=== PATIENT | female | born 1940 | race African-American/Black ===

== ENCOUNTER 2019-11-04 22:10 | Inpatient (IN) | payer MEDICARE, OTHER ==
[2019-11-05 08:28] VITALS: BP 155/79
--- NOTE | 2019-11-05 11:04 | Psychiatric Evaluation ---
DATE OF SERVICE: 11/05/2019 PSYCHIATRIC EVALUATION AND MENTAL STATUS EXAM Chart was reviewed and the patient interviewed. CHIEF COMPLAINT: "Did you tell my son." HISTORY OF PRESENT ILLNESS: The patient is a 79-year-old female who was placed on a [address] Benoit in [facility]. The patient apparently has been aggressive and has been agitated and also confused. She also has been easily agitated and angry. The patient also has been scratching staff and has been aggressive physically with staff and other patients. The patient also has been uncooperative with poor self-care and not able to follow any of staff directions. PAST PSYCHIATRIC HISTORY: The patient has history of dementia and also what seems to be depression. PAST MEDICAL HISTORY: The patient has diabetes mellitus as well as urinary tract infection. Also, has COPD and chronic kidney disease. SOCIAL HISTORY: The patient lives in a skilled nursing in [place]. The patient has 1 son. The patient denies smoking cigarettes or drinking alcohol or any street drugs. ALLERGIES: SULFA AND PENICILLIN. MENTAL STATUS EXAMINATION: Anxious. Sad affect. Irritable mood. Thought processes are with poverty of speech. The patient denies auditory or visual hallucinations, but is actively responding and at times talking to herself. The patient also has difficulty hearing at times. The patient denies suicide or homicide. The patient is alert, but disoriented to time, place, person and situation. Impaired immediate and recent memory, but intact remote memory and she remembered her date and she remembered her son's name. Poor insight and poor judgment. ASSESSMENT: PRIMARY DIAGNOSIS: Dementia, moderate to severe, with psychotic features and behavioral disturbances. Rule out depressive mood disorder with psychosis. TREATMENT PLAN: We will monitor the patient's behavior and her condition closely. We will start individual as well as milieu psychotherapy. We will monitor psychotropic medications. ESTIMATED LENGTH OF STAY: 5-7 days. PATIENT'S STRENGTHS AND WEAKNESSES: The patient at this time cooperative with her treatment. Weakness, she had poor impulse control and ineffective coping. AFTER DISCHARGE PLAN: Outpatient treatment and followup will continue as an outpatient. CRITERIA FOR DISCHARGE: The patient will not be psychotic and will stabilize psychotropic medications and will establish outpatient treatment plans. JOB# [id number]
[2019-11-05] MEDS ORDERED: Magnesium Hydroxide (MOM) 30 mL UDC PO PRN (12:35)
[2019-11-05] MEDS ORDERED: Polyvinyl Alcohol Ophth Soln 15 mL Bottle EACH EYE PRN ×2 (12:35→13:52)
--- NOTE | 2019-11-05 15:57 | History & Physical ---
ADMIT DATE: 11/05/2019 CHIEF COMPLAINT: Agitation. HISTORY OF PRESENT ILLNESS: We have a 79-year-old female who is transferred for treatment of agitation and aggressive behavior. The patient has dementia with agitation. The patient cannot give any meaningful history. No nausea, vomiting, abdominal pain, or diarrhea. PAST MEDICAL HISTORY: 1. Dementia. 2. Diabetes. 3. Hypertension. 4. COPD. PAST SURGICAL HISTORY: None. MEDICATIONS: List reviewed. ALLERGIES: None. SOCIAL HISTORY: Unobtainable. PHYSICAL EXAMINATION: VITAL SIGNS: Temperature is 97.1, pulse 71, respirations 165/73, satting 97% on room air. HEENT: Normocephalic, atraumatic head exam. NECK: Supple. CARDIOVASCULAR: Regular rate and rhythm. LUNGS: Decreased breath sounds. ABDOMEN: Soft, nontender. EXTREMITIES: No edema, cyanosis or clubbing. ASSESSMENT AND PLAN: 1. Agitation. 2. Aggressive behavior. 3. Dementia. 4. Hypertension. The patient will continue with supportive care. I reviewed the records transferred here along with the Director of GeropsychiatricAnika. There are no progress notes from any psychiatrist or PCP noted. Therefore, the patient will be assigned to the unassigned call panel. JOB# [id number]
[2019-11-05] MEDS ORDERED: GLUCAGON HCl 1 MG KIT IM PRN (21:51)
[2019-11-05] MEDS ORDERED: Maalox 30 mL Cup PO PRN (21:57)
[2019-11-06] MEDS: INSULIN LISPRO SLIDING SCALE 100 UNITS/ML UNIT SUBQ SCH ×4 (06:35→20:30)
[2019-11-06] MEDS: Multivitamin Tab PO SCH (08:30)
[2019-11-06] MEDS: Ferrous Sulfate 325 MG TAB PO SCH (08:30)
[2019-11-06] MEDS ORDERED: Multivitamin w/ Minerals Tab PO SCH (09:00)
--- NOTE | 2019-11-06 13:13 | Progress Notes ---
DATE: 11/06/2019 SUBJECTIVE: Chart reviewed and the patient interviewed. Also discussed the patient's condition with the staff and reviewed the records and labs. The patient is still severely irritable and still is easily agitated. The patient also is yelling and screaming for no reason. The patient also is still in angry mood. Otherwise, the patient is compliant with taking her medications with no side effects of medications. The patient is in the gurcolona chair. Agitated. Restless. Irritable mood. Easily agitated and easily irritable. ASSESSMENT: The patient is still agitated and is still psychotic. TREATMENT PLAN: We will start the patient on Seroquel 12.5 mg twice a day. Also, we will work on her irritability and agitation. Also, we will give Ativan on a p.r.n. basis. ESTIMATED LENGTH OF STAY: 4-6 days. REASON TO CONTINUE HOSPITAL STAY: The patient is still aggressive and agitated and needs close monitoring. [facility]# [id number]
--- NOTE | 2019-11-06 15:39 | Internal Medicine Prog Note ---
Internal Medicine Subjective - Subjective Service Date: 11/06/19 Patient seen and examined:: without staff Patient is:: awake Per staff patient has:: no adverse event, no episodes of fall Internal Medicine Objective - Results Recent Labs: Laboratory Last Values POC Glucose 269 MG/DL (70 - 105) H 11/06/19 06:12 - Physical Exam Vitals and I&O: Vital Signs Temp 96.8 F 11/06/19 14:00 Pulse 74 11/06/19 14:00 Resp 20 11/06/19 14:00 BP 137/84 11/06/19 14:00 Pulse Ox 90 11/06/19 14:00 Intake & Output 11/05/19 11/06/19 11/06/19 18:59 06:59 18:59 Intake Total 700 Balance 700 Weight (lbs) 52.617 kg Intake: Oral 700 Other: # Voids 3 # Bowel Movements 0 Stool Characteristics Soft Soft Soft Weight Source Estimated Active Medications: Current Medications Acetaminophen (Tylenol) 650 mg PO Q4H PRN PRN Reason: Pain (Mild 1-3) Stop: 01/04/20 21:56 Al Hydrox/Mg Hydrox/Simethicone (Maalox) 30 ml PO Q4HR PRN PRN Reason: GI DISTRESS Stop: 01/04/20 21:56 Artificial Tears (Artificial Tears Ophth Soln) 2 drop EACH EYE Q4HR PRN PRN Reason: Dry Eye Stop: 01/04/20 12:34 Bisacodyl (Dulcolax 10 Mg Supp) 10 mg RC DAILY PRN PRN Reason: IF MOM IS INEFFECTIVE Stop: 01/04/20 12:32 Dextrose (Glutose 40%) 18.75 gm PO PRN PRN PRN Reason: BS Below 70 if tolerate po Stop: 01/04/20 21:50 Donepezil HCl (Aricept) 5 mg PO DAILY [facility] Stop: 01/05/20 08:59 Last Admin: 11/06/19 08:31 Dose: 5 mg Ferrous Sulfate (Iron) 325 mg PO DAILY [facility] Stop: 01/05/20 08:59 Last Admin: 11/06/19 08:30 Dose: 325 mg Furosemide (Lasix) 20 mg PO DAILY [facility] Stop: 01/05/20 08:59 Last Admin: 11/06/19 08:31 Dose: 20 mg Glucagon (Glucagen) 1 mg IM PRN PRN PRN Reason: BS Below 70 if not tolerate po Stop: 01/04/20 21:50 Ibuprofen (Motrin) 400 mg PO Q4H PRN PRN Reason: Pain (Severe 7-10) Stop: 01/04/20 21:56 Last Admin: 11/06/19 08:30 Dose: 400 mg Insulin Glargine (Lantus Insulin) 20 units SUBQ HS [facility] Stop: 01/05/20 20:59 Insulin Human Lispro (Humalog Insulin Sliding Scale) 0 units SUBQ ACHS [facility]; Protocol Stop: 01/05/20 07:29 Last Admin: 11/06/19 11:25 Dose: Not Given Lisinopril (Zestril) 5 mg PO DAILY [facility] Stop: 01/05/20 08:59 Last Admin: 11/06/19 08:33 Dose: 5 mg Loratadine (Claritin) 10 mg PO DAILY [facility] Stop: 01/05/20 08:59 Last Admin: 11/06/19 08:31 Dose: 10 mg Lorazepam (Ativan) 0.5 mg PO Q4HR PRN; Protocol PRN Reason: Anxiety Stop: 12/05/19 12:59 Last Admin: 11/06/19 09:41 Dose: 0.5 mg Magnesium Hydroxide (Milk Of Magnesia) 30 ml PO DAILY PRN PRN Reason: Constipation Stop: 01/04/20 12:34 Multivitamins/Vitamin C (Theragran) 1 tab PO DAILY [facility] Stop: 01/05/20 08:59 Last Admin: 11/06/19 08:30 Dose: 1 tab Mupirocin (Bactroban Oint) 1 appl NS BID [facility] Stop: 11/11/19 09:01 Nitrofurantoin Macrocrystals (Macrobid) 100 mg PO BID [facility]; Protocol Stop: 11/06/19 16:59 Last Admin: 11/06/19 08:30 Dose: 100 mg Quetiapine Fumarate (Seroquel) 25 mg PO QPM [facility]; Protocol Stop: 01/05/20 16:59 Quetiapine Fumarate (Seroquel) 12.5 mg PO BID [facility]; Protocol Stop: 01/05/20 08:59 Last Admin: 11/06/19 09:41 Dose: 12.5 mg Zolpidem Tartrate (Ambien) 5 mg PO HS PRN PRN Reason: Insomnia Stop: 01/04/20 21:56 General: weak HEENT: NC/AT, PERRLA Neck: Supple Lungs: CTAB Cardiovascular: RRR, Normal S1, Normal S2 Abdomen: soft Extremities: clear Internal Medicine Assmt/Plan - Assessment Assessment: 1. DM 2. HTN 3. HLD 4. Dementia - Plan Plan: continue lantus 20 units sq daily continue sliding scale insulin d/w r.n.
[2019-11-06] MEDS ORDERED: Insulin Glargine 100 units/ml 10ml Vial SUBQ SCH (21:00)
[2019-11-07] MEDS: INSULIN LISPRO SLIDING SCALE 100 UNITS/ML UNIT SUBQ SCH ×4 (06:35→20:20)
[2019-11-07] MEDS: Ferrous Sulfate 325 MG TAB PO SCH (09:11)
[2019-11-07] MEDS: Multivitamin Tab PO SCH (09:43)
--- NOTE | 2019-11-07 13:28 | Progress Notes ---
DATE: 11/07/2019 SUBJECTIVE: Chart reviewed and the patient interviewed. Also discussed the patient's condition with the staff and reviewed records and labs. The patient still gets irritable and agitated, especially when the staff trying to help her with her ADLs. She is still trying to scratch nurses and staff. The patient also is still confused and she has disorganized thoughts. She seems to be slightly calmer since I started her on Seroquel, but she is still agitated and confused and actively responding. The patient denies any intention to harm herself. She is compliant with taking Seroquel with no side effects. MENTAL STATUS EXAMINATION: Anxious. Depressed and angry and irritable mood. The patient also is confused. No new labs available for review and the vital signs are stable. ASSESSMENT: The patient is still confused and can be dangerous to others. TREATMENT PLAN: Continue Seroquel 12.5 mg twice a day and Aricept 5 mg at bedtime and continue to follow up. ESTIMATED LENGTH OF STAY: 3-5 days. REASON FOR CONTINUED HOSPITAL STAY: The patient is still depressed and still can be dangerous to others. JOB# [id number]
--- NOTE | 2019-11-07 16:04 | Internal Medicine Prog Note ---
Internal Medicine Subjective - Subjective Service Date: 11/07/19 Patient seen and examined:: without staff Patient is:: awake Per staff patient has:: no adverse event, no episodes of fall Internal Medicine Objective - Results Recent Labs: Laboratory Last Values POC Glucose 75 MG/DL (70 - 105) 11/07/19 12:03 - Physical Exam Vitals and I&O: Vital Signs Temp 97.3 F 11/07/19 14:00 Pulse 90 11/07/19 14:00 Resp 18 11/07/19 14:00 BP 112/70 11/07/19 14:00 Pulse Ox 94 11/07/19 14:00 Intake & Output 11/06/19 11/07/19 11/07/19 18:59 06:59 18:59 Intake Total 1200 120 Balance 1200 120 Intake: Oral 1200 120 Other: # Voids 3 # Bowel Movements 1 Stool Characteristics Soft Soft Soft Active Medications: Current Medications Acetaminophen (Tylenol) 650 mg PO Q4H PRN PRN Reason: Pain (Mild 1-3) Stop: 01/04/20 21:56 Al Hydrox/Mg Hydrox/Simethicone (Maalox) 30 ml PO Q4HR PRN PRN Reason: GI DISTRESS Stop: 01/04/20 21:56 Artificial Tears (Artificial Tears Ophth Soln) 2 drop EACH EYE Q4HR PRN PRN Reason: Dry Eye Stop: 01/04/20 12:34 Bisacodyl (Dulcolax 10 Mg Supp) 10 mg RC DAILY PRN PRN Reason: IF MOM IS INEFFECTIVE Stop: 01/04/20 12:32 Dextrose (Glutose 40%) 18.75 gm PO PRN PRN PRN Reason: BS Below 70 if tolerate po Stop: 01/04/20 21:50 Donepezil HCl (Aricept) 5 mg PO DAILY [facility] Stop: 01/05/20 08:59 Last Admin: 11/07/19 09:11 Dose: 5 mg Ferrous Sulfate (Iron) 325 mg PO DAILY [facility] Stop: 01/05/20 08:59 Last Admin: 11/07/19 09:11 Dose: 325 mg Furosemide (Lasix) 20 mg PO DAILY [facility] Stop: 01/05/20 08:59 Last Admin: 11/06/19 08:31 Dose: 20 mg Glucagon (Glucagen) 1 mg IM PRN PRN PRN Reason: BS Below 70 if not tolerate po Stop: 01/04/20 21:50 Ibuprofen (Motrin) 400 mg PO Q4H PRN PRN Reason: Pain (Severe 7-10) Stop: 01/04/20 21:56 Last Admin: 11/06/19 08:30 Dose: 400 mg Insulin Glargine (Lantus Insulin) 20 units SUBQ HS [facility] Stop: 01/05/20 20:59 Last Admin: 11/06/19 20:29 Dose: 20 units Insulin Human Lispro (Humalog Insulin Sliding Scale) 0 units SUBQ ACHS [facility]; Protocol Stop: 01/05/20 07:29 Last Admin: 11/07/19 12:18 Dose: Not Given Lisinopril (Zestril) 5 mg PO DAILY [facility] Stop: 01/05/20 08:59 Last Admin: 11/07/19 09:10 Dose: 5 mg Loratadine (Claritin) 10 mg PO DAILY [facility] Stop: 01/05/20 08:59 Last Admin: 11/07/19 09:12 Dose: 10 mg Lorazepam (Ativan) 0.5 mg PO Q4HR PRN; Protocol PRN Reason: Anxiety Stop: 12/05/19 12:59 Last Admin: 11/06/19 09:41 Dose: 0.5 mg Magnesium Hydroxide (Milk Of Magnesia) 30 ml PO DAILY PRN PRN Reason: Constipation Stop: 01/04/20 12:34 Multivitamins/Vitamin C (Theragran) 1 tab PO DAILY [facility] Stop: 01/05/20 08:59 Last Admin: 11/07/19 09:43 Dose: Not Given Mupirocin (Bactroban Oint) 1 appl NS BID [facility] Stop: 11/11/19 09:01 Last Admin: 11/06/19 16:16 Dose: 1 appl Quetiapine Fumarate (Seroquel) 12.5 mg PO BID [facility]; Protocol Stop: 01/05/20 08:59 Last Admin: 11/07/19 09:13 Dose: 12.5 mg Quetiapine Fumarate (Seroquel) 25 mg PO HS [facility]; Protocol Stop: 01/06/20 20:59 Zolpidem Tartrate (Ambien) 5 mg PO HS PRN PRN Reason: Insomnia Stop: 01/04/20 21:56 Last Admin: 11/06/19 20:29 Dose: 5 mg General: weak HEENT: NC/AT, PERRLA Neck: Supple Lungs: CTAB Cardiovascular: RRR, Normal S1, Normal S2 Abdomen: soft Extremities: clear Neurological: no change Internal Medicine Assmt/Plan - Assessment Assessment: 1. DM, poorly controlled 2. HTN 3. HLD 4. Dementia - Plan Plan: increase lantus to 25 units sq daily continue sliding scale insulin d/w r.n. Nutritional Asmnt/Malnutr-PDOC - Dietary Evaluation Malnutrition Findings (Please click <Entered> for more info): Nutritional Asmnt/Malnutrition Start: 11/07/19 14: 05 Text: Status: Complete Freq: Protocol: Document 11/07/19 14:05 EVELYNE (Rec: 11/07/19 14:16 EVELYNE [email or web address] [id number]) Nutritional Asmnt/Malnutrition Patient General Information Nutritional Screening Moderate Risk Diagnosis Psychosis Pertinent Medical Hx/Surgical Hx HTN, DM, COPD, Dementia Subjective Information Pt is a 79-year-old female admitted on 11/04 d/t a 5150 hold, agitation and aggression . Pt is eating an estimated 54 % x2 days of meals Per Meal/ Nutrition Activity Record. Dietary is currently providing an estimated 2600 kcals and 150 gm Pro, per Pt PO intake this is providing an estimated 1400 kcals and 80gm Pro to meet 100+% kcal and 100+% Pro needs. Although pt POP intake is fair, dietary is providing enough kcals and pro to meet estimated energy needs. Visited pt in room, pt was lying down and unresponsive to conversation. Anthropometrics HT: 50 WT: 116 LB (52.72 kg) BMI: 22.65 (Normal) GI/ Skin Integrity GI: WNL, Soft BM: 11/05 x1 I/O: 1320/Not Noted Skin: WNL, Intact Jose Alfredo: 14 Diet Order: CCHO, Pureed Estimated Energy Needs: ( Geriatric, CBW) 4722-4263 kcals (25-30 kcals/ kg) 55-65 g Pro (1.0-1.2 g/kg) 3804-0577 ml (25-30 ml/kg) Current Diet Order/ Nutrition Support CCHO, Pureed Patient / S.O Can't verbalize diet edu Pertinent Medications Maalox (PRN), Dulcolax (PRN), Glutose 40% (PRN), Iron, Lasix , Glucagen, Lantus Insulin, INS-SS, MOM (PRN), Theragran Pertinent Labs POC Glucose (last 24 hours): 269, 240, 106, 106 11/04: Glucose 217, Urine Glucose 2+, Alb 2.8, A1C 10.1% Nutritional Hx/Data Height 1.52 m Height (Calculated Centimeters) 152.4 Current Weight (lbs) 52.617 kg Weight (Calculated Kilograms) 52.6 Weight (Calculated Grams) 74438.7 [place] Body Weight 100 % [place] Body Weight 116 Body Mass Index (BMI) 22.6 Recent Weight Change No Weight Status Approriate GI Symptoms GI Symptoms None Last BM BM: 11/05 x1 Skin Integrity/Comment: Skin: WNL, Intact Current %PO Fair (50-74%) Estimated Nutritional Goals BEE in Kcals: Using Current wt Calories/Kcals/Kg 25-30 Kcals Calculated 5863-4343 Protein: Using Current wt Protein g/k.0-1.2 Protein Calculated 55-65 Fluid: ml 5588-2800 ml (25-30 ml/kg) Nutritional Problem 1. Problem Problem Altered nutrition-related lab values Etiology related to endocrine dysfunction Signs/Symptoms: as evidenced by labs (A1C 10.1 % and POC Glucose (last 24 hours): 269, 240, 106, 106). Malnutrition Related to Morbid Obesity Malnutrition related to morbid obesity No Intervention/Recommendation Comments Continue CCHO, Pureed diet as tolerated. Expected Outcomes/Goals Expected Outcomes/Goals 1. PO intake to meet 75% of estimated nutritional needs. 2. Monitor PO intake, wt, nutrition related labs, and skin integrity. 3. F/U as moderate risk in 3-5 days, 11/09-11/11.
[2019-11-07] MEDS: Insulin Glargine 100 units/ml 10ml Vial SUBQ SCH (20:20)
[2019-11-08] MEDS: INSULIN LISPRO SLIDING SCALE 100 UNITS/ML UNIT SUBQ SCH ×3 (06:52→21:12)
[2019-11-08] MEDS: Multivitamin Tab PO SCH (08:46)
[2019-11-08] MEDS: Ferrous Sulfate 325 MG TAB PO SCH (08:46)
--- NOTE | 2019-11-08 13:41 | Internal Medicine Prog Note ---
Internal Medicine Subjective - Subjective Service Date: 11/08/19 Patient seen and examined:: without staff Patient is:: awake Per staff patient has:: no adverse event, no episodes of fall Internal Medicine Objective - Results Recent Labs: Laboratory Last Values POC Glucose 94 MG/DL (70 - 105) 11/08/19 11:04 - Physical Exam Vitals and I&O: Vital Signs Temp 97.6 F 11/07/19 19:52 Pulse 84 11/08/19 08:52 Resp 19 11/08/19 08:00 BP 134/79 11/08/19 08:53 Pulse Ox 90 11/07/19 19:52 Intake & Output 11/07/19 11/08/19 11/08/19 18:59 06:59 18:59 Intake Total 700 240 Balance 700 240 Intake: Oral 460 240 Other 240 Other: # Voids 3 2 # Bowel Movements 0 Stool Characteristics Soft Active Medications: Current Medications Acetaminophen (Tylenol) 650 mg PO Q4H PRN PRN Reason: Pain (Mild 1-3) Stop: 01/04/20 21:56 Al Hydrox/Mg Hydrox/Simethicone (Maalox) 30 ml PO Q4HR PRN PRN Reason: GI DISTRESS Stop: 01/04/20 21:56 Artificial Tears (Artificial Tears Ophth Soln) 2 drop EACH EYE Q4HR PRN PRN Reason: Dry Eye Stop: 01/04/20 12:34 Bisacodyl (Dulcolax 10 Mg Supp) 10 mg RC DAILY PRN PRN Reason: IF MOM IS INEFFECTIVE Stop: 01/04/20 12:32 Dextrose (Glutose 40%) 18.75 gm PO PRN PRN PRN Reason: BS Below 70 if tolerate po Stop: 01/04/20 21:50 Donepezil HCl (Aricept) 5 mg PO DAILY [facility] Stop: 01/05/20 08:59 Last Admin: 11/08/19 08:47 Dose: Not Given Ferrous Sulfate (Iron) 325 mg PO DAILY [facility] Stop: 01/05/20 08:59 Last Admin: 11/08/19 08:46 Dose: Not Given Furosemide (Lasix) 20 mg PO DAILY [facility] Stop: 01/05/20 08:59 Last Admin: 11/08/19 08:53 Dose: Not Given Glucagon (Glucagen) 1 mg IM PRN PRN PRN Reason: BS Below 70 if not tolerate po Stop: 01/04/20 21:50 Ibuprofen (Motrin) 400 mg PO Q4H PRN PRN Reason: Pain (Severe 7-10) Stop: 01/04/20 21:56 Last Admin: 11/06/19 08:30 Dose: 400 mg Insulin Glargine (Lantus Insulin) 25 units SUBQ HS [facility] Stop: 01/06/20 20:59 Last Admin: 11/07/19 20:20 Dose: Not Given Insulin Human Lispro (Humalog Insulin Sliding Scale) [address] [facility]; Protocol Stop: 01/05/20 07:29 Last Admin: 11/08/19 11:08 Dose: Not Given Lisinopril (Zestril) 5 mg PO DAILY [facility] Stop: 01/05/20 08:59 Last Admin: 11/08/19 08:52 Dose: Not Given Loratadine (Claritin) 10 mg PO DAILY [facility] Stop: 01/05/20 08:59 Last Admin: 11/08/19 08:45 Dose: Not Given Lorazepam (Ativan) 0.5 mg PO Q4HR PRN; Protocol PRN Reason: Anxiety Stop: 12/05/19 12:59 Last Admin: 11/06/19 09:41 Dose: 0.5 mg Magnesium Hydroxide (Milk Of Magnesia) 30 ml PO DAILY PRN PRN Reason: Constipation Stop: 01/04/20 12:34 Multivitamins/Vitamin C (Theragran) 1 tab PO DAILY [facility] Stop: 01/05/20 08:59 Last Admin: 11/08/19 08:46 Dose: Not Given Mupirocin (Bactroban Oint) 1 appl NS BID [facility] Stop: 11/11/19 09:01 Last Admin: 11/08/19 08:44 Dose: Not Given Quetiapine Fumarate (Seroquel) 12.5 mg PO BID [facility]; Protocol Stop: 01/05/20 08:59 Last Admin: 11/08/19 08:46 Dose: Not Given Quetiapine Fumarate (Seroquel) 25 mg PO HS [facility]; Protocol Stop: 01/06/20 20:59 Last Admin: 11/07/19 20:27 Dose: Not Given Zolpidem Tartrate (Ambien) 5 mg PO HS PRN PRN Reason: Insomnia Stop: 01/04/20 21:56 Last Admin: 11/06/19 20:29 Dose: 5 mg General: weak HEENT: NC/AT, PERRLA Neck: Supple Lungs: CTAB Cardiovascular: RRR, Normal S1, Normal S2 Abdomen: soft Extremities: clear Neurological: no change Internal Medicine Assmt/Plan - Assessment Assessment: 1. DM, poorly controlled 2. HTN 3. HLD 4. Dementia - Plan Plan: hold lantus start levaquin for uti continue sliding scale insulin d/w r.n. Nutritional Asmnt/Malnutr-PDOC - Dietary Evaluation Malnutrition Findings (Please click <Entered> for more info): Nutritional Asmnt/Malnutrition Start: 11/07/19 14: 05 Text: Status: Complete Freq: Protocol: Document 11/07/19 14:05 EVELYNE (Rec: 11/07/19 14:16 EVELYNE [email or web address] [id number]) Nutritional Asmnt/Malnutrition Patient General Information Nutritional Screening Moderate Risk Diagnosis Psychosis Pertinent Medical Hx/Surgical Hx HTN, DM, COPD, Dementia Subjective Information Pt is a 79-year-old female admitted on 11/04 d/t a 5150 hold, agitation and aggression . Pt is eating an estimated 54 % x2 days of meals Per Meal/ Nutrition Activity Record. Dietary is currently providing an estimated 2600 kcals and 150 gm Pro, per Pt PO intake this is providing an estimated 1400 kcals and 80gm Pro to meet 100+% kcal and 100+% Pro needs. Although pt POP intake is fair, dietary is providing enough kcals and pro to meet estimated energy needs. Visited pt in room, pt was lying down and unresponsive to conversation. Anthropometrics HT: 50 WT: 116 LB (52.72 kg) BMI: 22.65 (Normal) GI/ Skin Integrity GI: WNL, Soft BM: 11/05 x1 I/O: 1320/Not Noted Skin: WNL, Intact Jose Alfredo: 14 Diet Order: CCHO, Pureed Estimated Energy Needs: ( Geriatric, CBW) 4347-6733 kcals (25-30 kcals/ kg) 55-65 g Pro (1.0-1.2 g/kg) 5850-0800 ml (25-30 ml/kg) Current Diet Order/ Nutrition Support CCHO, Pureed Patient / S.O Can't verbalize diet edu Pertinent Medications Maalox (PRN), Dulcolax (PRN), Glutose 40% (PRN), Iron, Lasix , Glucagen, Lantus Insulin, INS-SS, MOM (PRN), Theragran Pertinent Labs POC Glucose (last 24 hours): 269, 240, 106, 106 11/04: Glucose 217, Urine Glucose 2+, Alb 2.8, A1C 10.1% Nutritional Hx/Data Height 1.52 m Height (Calculated Centimeters) 152.4 Current Weight (lbs) 52.617 kg Weight (Calculated Kilograms) 52.6 Weight (Calculated Grams) 04714.7 [place] Body Weight 100 % [place] Body Weight 116 Body Mass Index (BMI) 22.6 Recent Weight Change No Weight Status Approriate GI Symptoms GI Symptoms None Last BM BM: 11/05 x1 Skin Integrity/Comment: Skin: WNL, Intact Current %PO Fair (50-74%) Estimated Nutritional Goals BEE in Kcals: Using Current wt Calories/Kcals/Kg 25-30 Kcals Calculated 7052-6988 Protein: Using Current wt Protein g/k.0-1.2 Protein Calculated 55-65 Fluid: ml 2630-5881 ml (25-30 ml/kg) Nutritional Problem 1. Problem Problem Altered nutrition-related lab values Etiology related to endocrine dysfunction Signs/Symptoms: as evidenced by labs (A1C 10.1 % and POC Glucose (last 24 hours): 269, 240, 106, 106). Malnutrition Related to Morbid Obesity Malnutrition related to morbid obesity No Intervention/Recommendation Comments Continue CCHO, Pureed diet as tolerated. Expected Outcomes/Goals Expected Outcomes/Goals 1. PO intake to meet 75% of estimated nutritional needs. 2. Monitor PO intake, wt, nutrition related labs, and skin integrity. 3. F/U as moderate risk in 3-5 days, 11/09-11/11.
[2019-11-08] MEDS: Insulin Glargine 100 units/ml 10ml Vial SUBQ SCH (21:13)
--- NOTE | 2019-11-08 22:55 | Psych Progress Note ---
Psych Progress Note - Intro Date of Progress Note: 11/08/19 - Assessment Assessment: patient interviewed, case discussed with staff, chart and records were reviewed. patient remains confused. "Let me go home" but not able to recall where home is." She is easily angered, restless, paranoid of others. not cooperative with interview. - Vitals, I&O Vitals: Vital Signs - 24 hr 11/08/19 11/08/19 11/08/19 08:00 08:52 08:53 Temp HR 84 RR 19 BP 134/79 134/79 O2 Sat % 11/08/19 11/08/19 15:45 20:09 Temp 98.1 F 97.1 F HR 84 87 RR 20 20 BP 146/92 153/97 O2 Sat % 95 94 - Objective Psych General Appearance: Report: No acute distress Psych Behavior: Report: Uncooperative, Restless Psych Speech: Report: Mumbled, Soft Psych Mood: Report: Angry Psych Affect: Report: Labile Psych Cognition: Report: Confused Psych Insight: Report: Impaired Psych Judgement: Report: Impaired - Plan Plan: cont meds, encouraged groups - Review of Relevant Data Review of Relevant Data: I have reviewed the following items and time florina (where applicable) has been applied. - Medications Current Medications: Current Medications Acetaminophen (Tylenol) 650 mg PO Q4H PRN PRN Reason: Pain (Mild 1-3) Stop: 01/04/20 21:56 Al Hydrox/Mg Hydrox/Simethicone (Maalox) 30 ml PO Q4HR PRN PRN Reason: GI DISTRESS Stop: 01/04/20 21:56 Artificial Tears (Artificial Tears Ophth Soln) 2 drop EACH EYE Q4HR PRN PRN Reason: Dry Eye Stop: 01/04/20 12:34 Bisacodyl (Dulcolax 10 Mg Supp) 10 mg RC DAILY PRN PRN Reason: IF MOM IS INEFFECTIVE Stop: 01/04/20 12:32 Dextrose (Glutose 40%) 18.75 gm PO PRN PRN PRN Reason: BS Below 70 if tolerate po Stop: 01/04/20 21:50 Donepezil HCl (Aricept) 5 mg PO DAILY [facility] Stop: 01/05/20 08:59 Last Admin: 11/08/19 08:47 Dose: Not Given Ferrous Sulfate (Iron) 325 mg PO DAILY [facility] Stop: 01/05/20 08:59 Last Admin: 11/08/19 08:46 Dose: Not Given Furosemide (Lasix) 20 mg PO DAILY [facility] Stop: 01/05/20 08:59 Last Admin: 11/08/19 08:53 Dose: Not Given Glucagon (Glucagen) 1 mg IM PRN PRN PRN Reason: BS Below 70 if not tolerate po Stop: 01/04/20 21:50 Ibuprofen (Motrin) 400 mg PO Q4H PRN PRN Reason: Pain (Severe 7-10) Stop: 01/04/20 21:56 Last Admin: 11/06/19 08:30 Dose: 400 mg Insulin Glargine (Lantus Insulin) 25 units SUBQ HS [facility] Stop: 01/06/20 20:59 Last Admin: 11/08/19 21:13 Dose: 25 units Insulin Human Lispro (Humalog Insulin Sliding Scale) 0 units SUBQ ACHS [facility]; Protocol Stop: 01/05/20 07:29 Last Admin: 11/08/19 21:12 Dose: 2 units Levofloxacin (Levaquin) 500 mg PO DAILY [facility] Stop: 01/07/20 13:44 Last Admin: 11/08/19 14:26 Dose: 500 mg Lisinopril (Zestril) 5 mg PO DAILY [facility] Stop: 01/05/20 08:59 Last Admin: 11/08/19 08:52 Dose: Not Given Loratadine (Claritin) 10 mg PO DAILY [facility] Stop: 01/05/20 08:59 Last Admin: 11/08/19 08:45 Dose: Not Given Lorazepam (Ativan) 0.5 mg PO Q4HR PRN; Protocol PRN Reason: Anxiety Stop: 12/05/19 12:59 Last Admin: 11/08/19 22:26 Dose: 0.5 mg Magnesium Hydroxide (Milk Of Magnesia) 30 ml PO DAILY PRN PRN Reason: Constipation Stop: 01/04/20 12:34 Multivitamins/Vitamin C (Theragran) 1 tab PO DAILY [facility] Stop: 01/05/20 08:59 Last Admin: 11/08/19 08:46 Dose: Not Given Mupirocin (Bactroban Oint) 1 appl NS BID [facility] Stop: 11/11/19 09:01 Last Admin: 11/08/19 16:32 Dose: 1 appl Quetiapine Fumarate (Seroquel) 12.5 mg PO BID [facility]; Protocol Stop: 01/05/20 08:59 Last Admin: 11/08/19 16:32 Dose: 12.5 mg Quetiapine Fumarate (Seroquel) 25 mg PO HS [facility]; Protocol Stop: 01/06/20 20:59 Last Admin: 11/08/19 21:14 Dose: 25 mg Zolpidem Tartrate (Ambien) 5 mg PO HS PRN PRN Reason: Insomnia Stop: 01/04/20 21:56 Last Admin: 11/08/19 21:15 Dose: 5 mg
[2019-11-09] MEDS: INSULIN LISPRO SLIDING SCALE 100 UNITS/ML UNIT SUBQ SCH ×4 (07:26→20:51)
[2019-11-09] MEDS: Ferrous Sulfate 325 MG TAB PO SCH (09:09)
[2019-11-09] MEDS: Multivitamin Tab PO SCH (09:11)
--- NOTE | 2019-11-09 13:35 | Internal Medicine Prog Note ---
Internal Medicine Subjective - Subjective Service Date: 11/09/19 Patient seen and examined:: without staff Patient is:: awake Per staff patient has:: no adverse event, no episodes of fall Internal Medicine Objective - Results Recent Labs: Laboratory Last Values POC Glucose 141 MG/DL (70 - 105) H 11/09/19 11:56 - Physical Exam Vitals and I&O: Vital Signs Temp 97 F 11/09/19 06:06 Pulse 83 11/09/19 09:10 Resp 19 11/09/19 08:00 BP 179/90 11/09/19 09:10 Pulse Ox 93 11/09/19 06:06 Intake & Output 11/08/19 11/09/19 11/09/19 18:59 06:59 18:59 Intake Total 480 Output Total 1 Balance 479 Intake: Oral 480 Output: Urine/Stool Mix 1 Other: # Voids 1 Active Medications: Current Medications Acetaminophen (Tylenol) 650 mg PO Q4H PRN PRN Reason: Pain (Mild 1-3) Stop: 01/04/20 21:56 Al Hydrox/Mg Hydrox/Simethicone (Maalox) 30 ml PO Q4HR PRN PRN Reason: GI DISTRESS Stop: 01/04/20 21:56 Artificial Tears (Artificial Tears Ophth Soln) 2 drop EACH EYE Q4HR PRN PRN Reason: Dry Eye Stop: 01/04/20 12:34 Bisacodyl (Dulcolax 10 Mg Supp) 10 mg RC DAILY PRN PRN Reason: IF MOM IS INEFFECTIVE Stop: 01/04/20 12:32 Dextrose (Glutose 40%) 18.75 gm PO PRN PRN PRN Reason: BS Below 70 if tolerate po Stop: 01/04/20 21:50 Donepezil HCl (Aricept) 5 mg PO DAILY [facility] Stop: 01/05/20 08:59 Last Admin: 11/09/19 09:08 Dose: 5 mg Ferrous Sulfate (Iron) 325 mg PO DAILY [facility] Stop: 01/05/20 08:59 Last Admin: 11/09/19 09:09 Dose: 325 mg Furosemide (Lasix) 20 mg PO DAILY [facility] Stop: 01/05/20 08:59 Last Admin: 11/09/19 09:09 Dose: 20 mg Glucagon (Glucagen) 1 mg IM PRN PRN PRN Reason: BS Below 70 if not tolerate po Stop: 01/04/20 21:50 Ibuprofen (Motrin) 400 mg PO Q4H PRN PRN Reason: Pain (Severe 7-10) Stop: 01/04/20 21:56 Last Admin: 11/06/19 08:30 Dose: 400 mg Insulin Glargine (Lantus Insulin) 25 units SUBQ HS [facility] Stop: 01/06/20 20:59 Last Admin: 11/08/19 21:13 Dose: 25 units Insulin Human Lispro (Humalog Insulin Sliding Scale) 0 units SUBQ [facility]; Protocol Stop: 01/05/20 07:29 Last Admin: 11/09/19 11:59 Dose: Not Given Levofloxacin (Levaquin) 500 mg PO DAILY [facility] Stop: 01/07/20 13:44 Last Admin: 11/09/19 09:10 Dose: 500 mg Lisinopril (Zestril) 5 mg PO DAILY [facility] Stop: 01/05/20 08:59 Last Admin: 11/09/19 09:10 Dose: 5 mg Loratadine (Claritin) 10 mg PO DAILY [facility] Stop: 01/05/20 08:59 Last Admin: 11/09/19 09:11 Dose: 10 mg Lorazepam (Ativan) 0.5 mg PO Q4HR PRN; Protocol PRN Reason: Anxiety Stop: 12/05/19 12:59 Last Admin: 11/08/19 22:26 Dose: 0.5 mg Magnesium Hydroxide (Milk Of Magnesia) 30 ml PO DAILY PRN PRN Reason: Constipation Stop: 01/04/20 12:34 Multivitamins/Vitamin C (Theragran) 1 tab PO DAILY [facility] Stop: 01/05/20 08:59 Last Admin: 11/09/19 09:11 Dose: 1 tab Mupirocin (Bactroban Oint) 1 appl NS BID [facility] Stop: 11/11/19 09:01 Last Admin: 11/09/19 09:16 Dose: 1 appl Quetiapine Fumarate (Seroquel) 12.5 mg PO BID [facility]; Protocol Stop: 01/05/20 08:59 Last Admin: 11/09/19 09:11 Dose: 12.5 mg Quetiapine Fumarate (Seroquel) 25 mg PO [facility]; Protocol Stop: 01/06/20 20:59 Last Admin: 11/08/19 21:14 Dose: 25 mg Zolpidem Tartrate (Ambien) 5 mg PO HS PRN PRN Reason: Insomnia Stop: 01/04/20 21:56 Last Admin: 11/08/19 21:15 Dose: 5 mg General: weak HEENT: NC/AT, PERRLA Neck: Supple Lungs: CTAB Cardiovascular: RRR, Normal S1, Normal S2 Abdomen: soft Extremities: clear Neurological: no change Internal Medicine Assmt/Plan - Assessment Assessment: 1. DM, poorly controlled 2. HTN 3. HLD 4. Dementia - Plan Plan: hold lantus start levaquin for uti continue sliding scale insulin reviewed blood sugar diary still blood sugars are labile reviewed medical records and d/w r.n. Nutritional Asmnt/Malnutr-PDOC - Dietary Evaluation Malnutrition Findings (Please click <Entered> for more info): Nutritional Asmnt/Malnutrition Start: 11/07/19 14: 05 Text: Status: Complete Freq: Protocol: Document 11/07/19 14:05 EVELYNE (Rec: 11/07/19 14:16 EVELYNE [id number]) Nutritional Asmnt/Malnutrition Patient General Information Nutritional Screening Moderate Risk Diagnosis Psychosis Pertinent Medical Hx/Surgical Hx HTN, DM, COPD, Dementia Subjective Information Pt is a 79-year-old female admitted on 11/04 d/t a 5150 hold, agitation and aggression . Pt is eating an estimated 54 % x2 days of meals Per Meal/ Nutrition Activity Record. Dietary is currently providing an estimated 2600 kcals and 150 gm Pro, per Pt PO intake this is providing an estimated 1400 kcals and 80gm Pro to meet 100+% kcal and 100+% Pro needs. Although pt POP intake is fair, dietary is providing enough kcals and pro to meet estimated energy needs. Visited pt in room, pt was lying down and unresponsive to conversation. Anthropometrics HT: 50 WT: 116 LB (52.72 kg) BMI: 22.65 (Normal) GI/ Skin Integrity GI: WNL, Soft BM: 11/05 x1 I/O: 1320/Not Noted Skin: WNL, Intact Jose Alfredo: 14 Diet Order: CCHO, Pureed Estimated Energy Needs: ( Geriatric, CBW) 7932-5314 kcals (25-30 kcals/ kg) 55-65 g Pro (1.0-1.2 g/kg) 9153-2272 ml (25-30 ml/kg) Current Diet Order/ Nutrition Support CCHO, Pureed Patient / S.O Can't verbalize diet edu Pertinent Medications Maalox (PRN), Dulcolax (PRN), Glutose 40% (PRN), Iron, Lasix , Glucagen, Lantus Insulin, INS-SS, MOM (PRN), Theragran Pertinent Labs POC Glucose (last 24 hours): 269, 240, 106, 106 11/04: Glucose 217, Urine Glucose 2+, Alb 2.8, A1C 10.1% Nutritional Hx/Data Height 1.52 m Height (Calculated Centimeters) 152.4 Current Weight (lbs) 52.617 kg Weight (Calculated Kilograms) 52.6 Weight (Calculated Grams) 25561.7 [place] Body Weight 100 % [place] Body Weight 116 Body Mass Index (BMI) 22.6 Recent Weight Change No Weight Status Approriate GI Symptoms GI Symptoms None Last BM BM: 11/05 x1 Skin Integrity/Comment: Skin: WNL, Intact Current %PO Fair (50-74%) Estimated Nutritional Goals BEE in Kcals: Using Current wt Calories/Kcals/Kg 25-30 Kcals Calculated 4966-3114 Protein: Using Current wt Protein g/k.0-1.2 Protein Calculated 55-65 Fluid: ml 6684-2203 ml (25-30 ml/kg) Nutritional Problem 1. Problem Problem Altered nutrition-related lab values Etiology related to endocrine dysfunction Signs/Symptoms: as evidenced by labs (A1C 10.1 % and POC Glucose (last 24 hours): 269, 240, 106, 106). Malnutrition Related to Morbid Obesity Malnutrition related to morbid obesity No Intervention/Recommendation Comments [facility] diet as tolerated. Expected Outcomes/Goals Expected Outcomes/Goals 1. PO intake to meet 75% of estimated nutritional needs. 2. Monitor PO intake, wt, nutrition related labs, and skin integrity. 3. F/U as moderate risk in 3-5 days, 11/09-11/11.
[2019-11-09] MEDS: Insulin Glargine 100 units/ml 10ml Vial SUBQ SCH (20:51)
--- NOTE | 2019-11-09 22:35 | Psych Progress Note ---
Psych Progress Note - Intro Date of Progress Note: 11/09/19 - Assessment Assessment: patient interviewed, case discussed with staff, chart and records were reviewed. patient remains confused. She is easily angered, restless, paranoid of others. not cooperative with interview. She is fixed on people stealing her stuff "they're all taking my things at home." When asked who this may be she says "oh forget it." - Vitals, I&O Vitals: Vital Signs - 24 hr 11/09/19 11/09/19 11/09/19 06:06 08:00 09:09 Temp 97 F HR 69 83 RR 18 18 BP 133/55 179/90 179/90 O2 Sat % 93 11/09/19 11/09/19 09:10 14:00 Temp 97.2 F HR 83 85 RR 20 BP 179/90 145/88 O2 Sat % 95 - Objective Psych General Appearance: Report: No acute distress Psych Behavior: Report: Uncooperative, Restless Psych Speech: Report: Mumbled, Soft Psych Mood: Report: Angry Psych Affect: Report: Labile Psych Cognition: Report: Confused Psych Insight: Report: Impaired Psych Judgement: Report: Impaired - Plan Plan: cont meds, encouraged groups - Review of Relevant Data Review of Relevant Data: I have reviewed the following items and time florina (where applicable) has been applied. - Medications Current Medications: Current Medications Acetaminophen (Tylenol) 650 mg PO Q4H PRN PRN Reason: Pain (Mild 1-3) Stop: 01/04/20 21:56 Al Hydrox/Mg Hydrox/Simethicone (Maalox) 30 ml PO Q4HR PRN PRN Reason: GI DISTRESS Stop: 01/04/20 21:56 Artificial Tears (Artificial Tears Ophth Soln) 2 drop EACH EYE Q4HR PRN PRN Reason: Dry Eye Stop: 01/04/20 12:34 Bisacodyl (Dulcolax 10 Mg Supp) 10 mg RC DAILY PRN PRN Reason: IF MOM IS INEFFECTIVE Stop: 01/04/20 12:32 Dextrose (Glutose 40%) 18.75 gm PO PRN PRN PRN Reason: BS Below 70 if tolerate po Stop: 01/04/20 21:50 Donepezil HCl (Aricept) 5 mg PO DAILY [facility] Stop: 01/05/20 08:59 Last Admin: 11/09/19 09:08 Dose: 5 mg Ferrous Sulfate (Iron) 325 mg PO DAILY [facility] Stop: 01/05/20 08:59 Last Admin: 11/09/19 09:09 Dose: 325 mg Furosemide (Lasix) 20 mg PO DAILY [facility] Stop: 01/05/20 08:59 Last Admin: 11/09/19 09:09 Dose: 20 mg Glucagon (Glucagen) 1 mg IM PRN PRN PRN Reason: BS Below 70 if not tolerate po Stop: 01/04/20 21:50 Ibuprofen (Motrin) 400 mg PO Q4H PRN PRN Reason: Pain (Severe 7-10) Stop: 01/04/20 21:56 Last Admin: 11/06/19 08:30 Dose: 400 mg Insulin Glargine (Lantus Insulin) 25 units SUBQ HS [facility] Stop: 01/06/20 20:59 Last Admin: 11/09/19 20:51 Dose: Not Given Insulin Human Lispro (Humalog Insulin Sliding Scale) 0 units SUBQ ACHS [facility]; Protocol Stop: 01/05/20 07:29 Last Admin: 11/09/19 20:51 Dose: Not Given Levofloxacin (Levaquin) 500 mg PO DAILY [facility] Stop: 01/07/20 13:44 Last Admin: 11/09/19 09:10 Dose: 500 mg Lisinopril (Zestril) 5 mg PO DAILY [facility] Stop: 01/05/20 08:59 Last Admin: 11/09/19 09:10 Dose: 5 mg Loratadine (Claritin) 10 mg PO DAILY [facility] Stop: 01/05/20 08:59 Last Admin: 11/09/19 09:11 Dose: 10 mg Lorazepam (Ativan) 0.5 mg PO Q4HR PRN; Protocol PRN Reason: Anxiety Stop: 12/05/19 12:59 Last Admin: 11/09/19 22:27 Dose: 0.5 mg Magnesium Hydroxide (Milk Of Magnesia) 30 ml PO DAILY PRN PRN Reason: Constipation Stop: 01/04/20 12:34 Multivitamins/Vitamin C (Theragran) 1 tab PO DAILY [facility] Stop: 01/05/20 08:59 Last Admin: 11/09/19 09:11 Dose: 1 tab Mupirocin (Bactroban Oint) 1 appl NS BID [facility] Stop: 11/11/19 09:01 Last Admin: 11/09/19 09:16 Dose: 1 appl Quetiapine Fumarate (Seroquel) 12.5 mg PO BID [facility]; Protocol Stop: 01/05/20 08:59 Last Admin: 11/09/19 17:06 Dose: 12.5 mg Quetiapine Fumarate (Seroquel) 25 mg PO HS [facility]; Protocol Stop: 01/06/20 20:59 Last Admin: 11/09/19 20:52 Dose: 25 mg Zolpidem Tartrate (Ambien) 5 mg PO HS PRN PRN Reason: Insomnia Stop: 01/04/20 21:56 Last Admin: 11/09/19 20:52 Dose: 5 mg
[2019-11-10] MEDS: INSULIN LISPRO SLIDING SCALE 100 UNITS/ML UNIT SUBQ SCH ×4 (06:30→20:34)
[2019-11-10] MEDS: Ferrous Sulfate 325 MG TAB PO SCH ×2 (08:25→09:40)
[2019-11-10] MEDS: Multivitamin Tab PO SCH ×2 (08:26→09:42)
--- NOTE | 2019-11-10 17:27 | Progress Notes ---
DATE: 11/10/2019 PSYCHIATRIC PROGRESS NOTE SUBJECTIVE: Chart reviewed and the patient interviewed. Also discussed the patient's condition with the staff and reviewed records and labs. The patient remains severely depressed and anxious. The patient also is still withdrawn and interacting minimally with peers and with others. She also is still easily agitated and still wants to be left alone most of the time and resisting care when staff tried to approach her. She also is still having episodes of screaming and yelling. Otherwise, the patient is compliant with taking her medications with no side effects of medications. ASSESSMENT: The patient is still agitated and psychotic and needs close monitoring. TREATMENT PLAN: Continue to monitor behavior and her condition closely. Also, continue adjusting psychotropic medications and work on behavioral modification. JOB# [id number]
[2019-11-10] MEDS: Insulin Glargine 100 units/ml 10ml Vial SUBQ SCH (20:34)
[2019-11-11] MEDS: INSULIN LISPRO SLIDING SCALE 100 UNITS/ML UNIT SUBQ SCH ×5 (06:30→21:15)
[2019-11-11] MEDS: Multivitamin Tab PO SCH (09:27)
[2019-11-11] MEDS: Ferrous Sulfate 325 MG TAB PO SCH (09:27)
--- NOTE | 2019-11-11 12:17 | Progress Notes ---
DATE: 11/11/2019 PSYCHIATRIC PROGRESS NOTE SUBJECTIVE: Chart reviewed and the patient interviewed. Also discussed the patient's condition with the staff and reviewed records and labs. The patient continued to be pleasantly confused and she is still guarded and withdrawn. The patient also still seems to be disoriented and "who are you?" She also still stays in her bed most of the time and still needs lots of redirections. The patient also still had episodes of irritability and agitation, but seems to be less than before. Otherwise, the patient continued to comply with taking her medications with no side effects of medications. ASSESSMENT: The patient is still in irritable mood and depressed and she still has mood swings. TREATMENT PLAN: Continue to monitor behavior and condition closely. Also, continue adjusting psychotropic medications. Also, working with nurse outreach case manager in regard to her discharge plans and issue. JOB# [id number]
--- NOTE | 2019-11-11 15:59 | Internal Medicine Prog Note ---
Internal Medicine Subjective - Subjective Service Date: 11/11/19 Patient seen and examined:: without staff Patient is:: awake Per staff patient has:: no adverse event, no episodes of fall Internal Medicine Objective - Results Recent Labs: Laboratory Last Values POC Glucose 181 MG/DL (70 - 105) H 11/10/19 16:27 - Physical Exam Vitals and I&O: Vital Signs Temp 98.1 F 11/11/19 14:00 Pulse 102 11/11/19 14:00 Resp 20 11/11/19 14:00 BP 144/94 11/11/19 14:00 Pulse Ox 96 11/11/19 14:00 Intake & Output 11/10/19 11/11/19 11/11/19 18:59 06:59 18:59 Intake Total 960 660 550 Output Total 1 Balance 960 659 550 Intake: Oral 960 660 550 Output: Urine/Stool Mix 1 Other: # Voids 3 1 # Bowel Movements 0 Active Medications: Current Medications Acetaminophen (Tylenol) 650 mg PO Q4H PRN PRN Reason: Pain (Mild 1-3) Stop: 01/04/20 21:56 Al Hydrox/Mg Hydrox/Simethicone (Maalox) 30 ml PO Q4HR PRN PRN Reason: GI DISTRESS Stop: 01/04/20 21:56 Artificial Tears (Artificial Tears Ophth Soln) 2 drop EACH EYE Q4HR PRN PRN Reason: Dry Eye Stop: 01/04/20 12:34 Bisacodyl (Dulcolax 10 Mg Supp) 10 mg RC DAILY PRN PRN Reason: IF MOM IS INEFFECTIVE Stop: 01/04/20 12:32 Dextrose (Glutose 40%) 18.75 gm PO PRN PRN PRN Reason: BS Below 70 if tolerate po Stop: 01/04/20 21:50 Donepezil HCl (Aricept) 5 mg PO DAILY [facility] Stop: 01/11/20 08:59 Ferrous Sulfate (Iron) 325 mg PO DAILY [facility] Stop: 01/05/20 08:59 Last Admin: 11/11/19 09:27 Dose: 325 mg Furosemide (Lasix) 20 mg PO DAILY [facility] Stop: 01/05/20 08:59 Last Admin: 11/11/19 09:28 Dose: 20 mg Glucagon (Glucagen) 1 mg IM PRN PRN PRN Reason: BS Below 70 if not tolerate po Stop: 01/04/20 21:50 Ibuprofen (Motrin) 400 mg PO Q4H PRN PRN Reason: Pain (Severe 7-10) Stop: 01/04/20 21:56 Last Admin: 11/06/19 08:30 Dose: 400 mg Insulin Glargine (Lantus Insulin) 25 units SUBQ HS [facility] Stop: 01/06/20 20:59 Last Admin: 11/10/19 20:34 Dose: 25 units Insulin Human Lispro (Humalog Insulin Sliding Scale) 0 units SUBQ ACHS [facility]; Protocol Stop: 01/05/20 07:29 Last Admin: 11/11/19 15:43 Dose: Not Given Levofloxacin (Levaquin) 500 mg PO DAILY [facility] Stop: 01/07/20 13:44 Last Admin: 11/11/19 09:29 Dose: 500 mg Lisinopril (Zestril) 5 mg PO DAILY [facility] Stop: 01/05/20 08:59 Last Admin: 11/11/19 09:30 Dose: 5 mg Loratadine (Claritin) 10 mg PO DAILY [facility] Stop: 01/05/20 08:59 Last Admin: 11/11/19 09:31 Dose: 10 mg Lorazepam (Ativan) 0.5 mg PO Q4HR PRN; Protocol PRN Reason: Anxiety Stop: 12/05/19 12:59 Last Admin: 11/11/19 09:32 Dose: 0.5 mg Magnesium Hydroxide (Milk Of Magnesia) 30 ml PO DAILY PRN PRN Reason: Constipation Stop: 01/04/20 12:34 Multivitamins/Vitamin C (Theragran) 1 tab PO DAILY [facility] Stop: 01/05/20 08:59 Last Admin: 11/11/19 09:27 Dose: 1 tab Quetiapine Fumarate (Seroquel) 12.5 mg PO BID [facility]; Protocol Stop: 01/05/20 08:59 Last Admin: 11/11/19 09:33 Dose: 12.5 mg Quetiapine Fumarate (Seroquel) 25 mg PO HS [facility]; Protocol Stop: 01/06/20 20:59 Last Admin: 11/10/19 20:35 Dose: 25 mg Zolpidem Tartrate (Ambien) 5 mg PO HS PRN PRN Reason: Insomnia Stop: 01/04/20 21:56 Last Admin: 11/10/19 20:36 Dose: 5 mg General: weak HEENT: NC/AT, PERRLA Neck: Supple Lungs: CTAB Cardiovascular: RRR, Normal S1, Normal S2 Abdomen: soft Extremities: clear Neurological: no change Internal Medicine Assmt/Plan - Assessment Assessment: 1. DM, poorly controlled 2. HTN 3. HLD 4. Dementia - Plan Plan: continue lantus continue sliding scale insulin reviewed blood sugar diary still blood sugars are labile reviewed medical records and d/w r.n. Nutritional Asmnt/Malnutr-PDOC - Dietary Evaluation Malnutrition Findings (Please click <Entered> for more info): Nutritional Asmnt/Malnutrition Start: 11/07/19 14: 05 Text: Status: Complete Freq: Protocol: Document 11/07/19 14:05 EVELYNE (Rec: 11/07/19 14:16 EVELYNE [id number]) Nutritional Asmnt/Malnutrition Patient General Information Nutritional Screening Moderate Risk Diagnosis Psychosis Pertinent Medical Hx/Surgical Hx HTN, DM, COPD, Dementia Subjective Information Pt is a 79-year-old female admitted on 11/04 d/t a 5150 hold, agitation and aggression . Pt is eating an estimated 54 % x2 days of meals Per Meal/ Nutrition Activity Record. Dietary is currently providing an estimated 2600 kcals and 150 gm Pro, per Pt PO intake this is providing an estimated 1400 kcals and 80gm Pro to meet 100+% kcal and 100+% Pro needs. Although pt POP intake is fair, dietary is providing enough kcals and pro to meet estimated energy needs. Visited pt in room, pt was lying down and unresponsive to conversation. Anthropometrics HT: 50 WT: 116 LB (52.72 kg) BMI: 22.65 (Normal) GI/ Skin Integrity GI: WNL, Soft BM: 11/05 x1 I/O: 1320/Not Noted Skin: WNL, Intact Jose Alfredo: 14 Diet Order: CCHO, Pureed Estimated Energy Needs: ( Geriatric, CBW) 7635-4955 kcals (25-30 kcals/ kg) 55-65 g Pro (1.0-1.2 g/kg) 1478-1470 ml (25-30 ml/kg) Current Diet Order/ Nutrition Support CCHO, Pureed Patient / S.O Can't verbalize diet edu Pertinent Medications Maalox (PRN), Dulcolax (PRN), Glutose 40% (PRN), Iron, Lasix , Glucagen, Lantus Insulin, INS-SS, MOM (PRN), Theragran Pertinent Labs POC Glucose (last 24 hours): 269, 240, 106, 106 11/04: Glucose 217, Urine Glucose 2+, Alb 2.8, A1C 10.1% Nutritional Hx/Data Height 1.52 m Height (Calculated Centimeters) 152.4 Current Weight (lbs) 52.617 kg Weight (Calculated Kilograms) 52.6 Weight (Calculated Grams) 81661.7 [place] Body Weight 100 % [place] Body Weight 116 Body Mass Index (BMI) 22.6 Recent Weight Change No Weight Status Approriate GI Symptoms GI Symptoms None Last BM BM: 11/05 x1 Skin Integrity/Comment: Skin: WNL, Intact Current %PO Fair (50-74%) Estimated Nutritional Goals BEE in Kcals: Using Current wt Calories/Kcals/Kg 25-30 Kcals Calculated 9153-4266 Protein: Using Current wt Protein g/k.0-1.2 Protein Calculated 55-65 Fluid: ml 9855-9145 ml (25-30 ml/kg) Nutritional Problem 1. Problem Problem Altered nutrition-related lab values Etiology related to endocrine dysfunction Signs/Symptoms: as evidenced by labs (A1C 10.1 % and POC Glucose (last 24 hours): 269, 240, 106, 106). Malnutrition Related to Morbid Obesity Malnutrition related to morbid obesity No Intervention/Recommendation Comments Continue CCHO, Pureed diet as tolerated. Expected Outcomes/Goals Expected Outcomes/Goals 1. PO intake to meet 75% of estimated nutritional needs. 2. Monitor PO intake, wt, nutrition related labs, and skin integrity. 3. F/U as moderate risk in 3-5 days, 11/09-11/11.
[2019-11-11] MEDS: Insulin Glargine 100 units/ml 10ml Vial SUBQ SCH (21:15)
[2019-11-12] MEDS: INSULIN LISPRO SLIDING SCALE 100 UNITS/ML UNIT SUBQ SCH ×4 (06:47→20:25)
[2019-11-12] MEDS: Ferrous Sulfate 325 MG TAB PO SCH (09:13)
[2019-11-12] MEDS: Multivitamin Tab PO SCH (09:15)
--- NOTE | 2019-11-12 15:44 | Internal Medicine Prog Note ---
Internal Medicine Subjective - Subjective Service Date: 11/12/19 Patient is:: awake Per staff patient has:: no adverse event, no episodes of fall Internal Medicine Objective - Results Recent Labs: Laboratory Last Values POC Glucose 57 MG/DL (70 - 105) L 11/12/19 07:05 - Physical Exam Vitals and I&O: Vital Signs Temp 96.9 F 11/12/19 14:00 Pulse 88 11/12/19 14:00 Resp 18 11/12/19 14:00 BP 157/98 11/12/19 14:00 Pulse Ox 96 11/12/19 14:00 Intake & Output 11/11/19 11/12/19 11/12/19 18:59 06:59 18:59 Intake Total 900 120 Balance 900 120 Intake: Oral 900 120 Other: # Voids 3 3 # Bowel Movements 0 Active Medications: Current Medications Acetaminophen (Tylenol) 650 mg PO Q4H PRN PRN Reason: Pain (Mild 1-3) Stop: 01/04/20 21:56 Al Hydrox/Mg Hydrox/Simethicone (Maalox) 30 ml PO Q4HR PRN PRN Reason: GI DISTRESS Stop: 01/04/20 21:56 Artificial Tears (Artificial Tears Ophth Soln) 2 drop EACH EYE Q4HR PRN PRN Reason: Dry Eye Stop: 01/04/20 12:34 Bisacodyl (Dulcolax 10 Mg Supp) 10 mg RC DAILY PRN PRN Reason: IF MOM IS INEFFECTIVE Stop: 01/04/20 12:32 Dextrose (Glutose 40%) 18.75 gm PO PRN PRN PRN Reason: BS Below 70 if tolerate po Stop: 01/04/20 21:50 Last Admin: 11/12/19 06:47 Dose: 18.75 gm Donepezil HCl (Aricept) 5 mg PO DAILY HARIKA Stop: 01/11/20 08:59 Last Admin: 11/12/19 09:13 Dose: Not Given Ferrous Sulfate (Iron) 325 mg PO DAILY HARIKA Stop: 01/05/20 08:59 Last Admin: 11/12/19 09:13 Dose: Not Given Furosemide (Lasix) 20 mg PO DAILY HARIKA Stop: 01/05/20 08:59 Last Admin: 11/12/19 09:13 Dose: Not Given Glucagon (Glucagen) 1 mg IM PRN PRN PRN Reason: BS Below 70 if not tolerate po Stop: 01/04/20 21:50 Ibuprofen (Motrin) 400 mg PO Q4H PRN PRN Reason: Pain (Severe 7-10) Stop: 01/04/20 21:56 Last Admin: 11/06/19 08:30 Dose: 400 mg Insulin Glargine (Lantus Insulin) 20 units SUBQ HS [facility] Stop: 01/11/20 20:59 Insulin Human Lispro (Humalog Insulin Sliding Scale) 0 units SUBQ ACHS [facility]; Protocol Stop: 01/05/20 07:29 Last Admin: 11/12/19 12:02 Dose: Not Given Levofloxacin (Levaquin) 500 mg PO DAILY [facility] Stop: 01/07/20 13:44 Last Admin: 11/12/19 09:14 Dose: Not Given Lisinopril (Zestril) 5 mg PO DAILY [facility] Stop: 01/05/20 08:59 Last Admin: 11/12/19 09:09 Dose: Not Given Loratadine (Claritin) 10 mg PO DAILY [facility] Stop: 01/05/20 08:59 Last Admin: 11/12/19 09:15 Dose: Not Given Lorazepam (Ativan) 0.5 mg PO Q4HR PRN; Protocol PRN Reason: Anxiety Stop: 12/05/19 12:59 Last Admin: 11/11/19 16:45 Dose: 0.5 mg Magnesium Hydroxide (Milk Of Magnesia) 30 ml PO DAILY PRN PRN Reason: Constipation Stop: 01/04/20 12:34 Multivitamins/Vitamin C (Theragran) 1 tab PO DAILY [facility] Stop: 01/05/20 08:59 Last Admin: 11/12/19 09:15 Dose: Not Given Quetiapine Fumarate (Seroquel) 12.5 mg PO BID [facility]; Protocol Stop: 01/05/20 08:59 Last Admin: 11/12/19 09:15 Dose: Not Given Quetiapine Fumarate (Seroquel) 25 mg PO HS [facility]; Protocol Stop: 01/06/20 20:59 Last Admin: 11/11/19 21:15 Dose: 25 mg Zolpidem Tartrate (Ambien) 5 mg PO HS PRN PRN Reason: Insomnia Stop: 01/04/20 21:56 Last Admin: 11/10/19 20:36 Dose: 5 mg General: weak HEENT: NC/AT, PERRLA Neck: Supple Lungs: CTAB Cardiovascular: RRR, Normal S1, Normal S2 Abdomen: soft Extremities: clear Neurological: no change Internal Medicine Assmt/Plan - Assessment Assessment: 1. Hypoglycemia 2. DM/HTN 3. HLD 4. Dementia - Plan Plan: decrease lantus to 20 units sq daily continue sliding scale insulin reviewed blood sugar diary still blood sugars are labile reviewed medical records and d/w r.n. Nutritional Asmnt/Malnutr-PDOC - Dietary Evaluation Malnutrition Findings (Please click <Entered> for more info): Nutritional Asmnt/Malnutrition Start: 11/07/19 14: 05 Text: Status: Complete Freq: Protocol: Document 11/07/19 14:05 EVELYNE (Rec: 11/07/19 14:16 [email or web address] [id number]) Nutritional Asmnt/Malnutrition Patient General Information Nutritional Screening Moderate Risk Diagnosis Psychosis Pertinent Medical Hx/Surgical Hx HTN, DM, COPD, Dementia Subjective Information Pt is a 79-year-old female admitted on 11/04 d/t a 5150 hold, agitation and aggression . Pt is eating an estimated 54 % x2 days of meals Per Meal/ Nutrition Activity Record. Dietary is currently providing an estimated 2600 kcals and 150 gm Pro, per Pt PO intake this is providing an estimated 1400 kcals and 80gm Pro to meet 100+% kcal and 100+% Pro needs. Although pt POP intake is fair, dietary is providing enough kcals and pro to meet estimated energy needs. Visited pt in room, pt was lying down and unresponsive to conversation. Anthropometrics HT: 50 WT: 116 LB (52.72 kg) BMI: 22.65 (Normal) GI/ Skin Integrity GI: WNL, Soft BM: 11/05 x1 I/O: 1320/Not Noted Skin: WNL, Intact Jose Alfredo: 14 Diet Order: CCHO, Pureed Estimated Energy Needs: ( Geriatric, CBW) 6096-1911 kcals (25-30 kcals/ kg) 55-65 g Pro (1.0-1.2 g/kg) 2476-2371 ml (25-30 ml/kg) Current Diet Order/ Nutrition Support CCHO, Pureed Patient / S.O Can't verbalize diet edu Pertinent Medications Maalox (PRN), Dulcolax (PRN), Glutose 40% (PRN), Iron, Lasix , Glucagen, Lantus Insulin, INS-SS, MOM (PRN), Theragran Pertinent Labs POC Glucose (last 24 hours): 269, 240, 106, 106 11/04: Glucose 217, Urine Glucose 2+, Alb 2.8, A1C 10.1% Nutritional Hx/Data Height 1.52 m Height (Calculated Centimeters) 152.4 Current Weight (lbs) 52.617 kg Weight (Calculated Kilograms) 52.6 Weight (Calculated Grams) 29474.7 [place] Body Weight 100 % [place] Body Weight 116 Body Mass Index (BMI) 22.6 Recent Weight Change No Weight Status Approriate GI Symptoms GI Symptoms None Last BM BM: 11/05 x1 Skin Integrity/Comment: Skin: WNL, Intact Current %PO Fair (50-74%) Estimated Nutritional Goals BEE in Kcals: Using Current wt Calories/Kcals/Kg 25-30 Kcals Calculated 7751-4085 Protein: Using Current wt Protein g/k.0-1.2 Protein Calculated 55-65 Fluid: ml 1324-2754 ml (25-30 ml/kg) Nutritional Problem 1. Problem Problem Altered nutrition-related lab values Etiology related to endocrine dysfunction Signs/Symptoms: as evidenced by labs (A1C 10.1 % and POC Glucose (last 24 hours): 269, 240, 106, 106). Malnutrition Related to Morbid Obesity Malnutrition related to morbid obesity No Intervention/Recommendation Comments Continue CCHO, Pureed diet as tolerated. Expected Outcomes/Goals Expected Outcomes/Goals 1. PO intake to meet 75% of estimated nutritional needs. 2. Monitor PO intake, wt, nutrition related labs, and skin integrity. 3. F/U as moderate risk in 3-5 days, 11/09-11/11.
[2019-11-12] MEDS ORDERED: Insulin Glargine 100 units/ml 10ml Vial SUBQ SCH (21:00)
[2019-11-13] MEDS: INSULIN LISPRO SLIDING SCALE 100 UNITS/ML UNIT SUBQ SCH ×2 (07:36→11:27)
[2019-11-13] MEDS: Multivitamin Tab PO SCH (09:17)
[2019-11-13] MEDS: Ferrous Sulfate 325 MG TAB PO SCH (09:17)
--- NOTE | 2019-11-13 09:41 | Progress Notes ---
DATE: 11/13/2019 PSYCHIATRIC PROGRESS NOTE SUBJECTIVE: Chart reviewed and the patient interviewed. Also discussed the patient's condition with the staff and reviewed records and labs. The patient seems to be more agitated this morning and she also refusing to take her medications. The patient also is restless and slightly paranoid. Also, the patient is disheveled and personal hygiene is still poor. She also still needs redirections. TREATMENT PLAN: Advised the patient to take her psychotropic medications. Also, the place where she is supposed to go back which is [facility] refused to take her and I contacted 2 other places, hopefully that will accept her there. At the same time, we will continue working on her compliance with medications as well as her irritability. ESTIMATED LENGTH OF STAY: 2-4 days. REASON FOR CONTINUED HOSPITAL STAY: The patient is noncompliant with taking medications and also placement is an issue. JOB# [id number]
--- NOTE | 2019-11-13 17:04 | Progress Notes ---
DATE: 11/12/2019 SUBJECTIVE: Chart was reviewed and the patient interviewed. Also discussed the patient's condition with the staff and reviewed records and labs. The patient is calm and cooperative. The patient also is interacting more. The patient is slightly forgetful and slightly confused, but no major behavioral problems. The patient also needs sometimes redirections. Otherwise, the patient is compliant with taking her medications with no side effects of medications. Vital signs are stable. MENTAL STATUS EXAMINATION: Calm. Cooperative. Slightly forgetful and confused. She denies hallucinations or delusions and denies suicidal or homicidal ideations. ASSESSMENT: The patient currently not suicidal or homicidal. No major behavioral problems. TREATMENT PLAN: Planning to discharge the patient today to [facility] and we will follow her there. EXPECTED OUTCOME AFTER DISCHARGE: Fair. [facility]# [id number]
== END 2019-11-13 15:30 | DRG 884 ==
LOC: GERO 11-05 06:25
PROVIDERS: ADMIT Psychiatry & Neurology Psychiatry; ATTEND Psychiatry & Neurology Psychiatry
DX: F03.91 Unspecified dementia, unspecified severity, with behavioral disturbance (principal); I10 Essential (primary) hypertension; E78.5 Hyperlipidemia, unspecified; E11.9 Type 2 diabetes mellitus without complications; Z79.899 Other long term (current) drug therapy
CPT/HCPCS: 82948-90; 83036-90; 97530; J1815; Z7610